=== PATIENT | male | born 1995 | race Caucasian/White ===

== ENCOUNTER 2017-04-14 14:30 | Emergency (ER) | payer SELFPAY ==
[~2017-04-14] VITALS: Ht 190.5 cm; Wt 116.0 kg
[2017-04-14 14:33] VITALS: BP 155/76; PULSE 68; RESP 16; TEMP 97.8; O2SAT 100
[2017-04-14 14:52] LABS: BLOOD, URINE TRACE (NEG); GLUCOSE,URINE NEG (NEG); KETONE, URINE TRACE mg/dL (NEG); NITRITE,URINE NEG (NEG); PH, URINE 6.5 (5.0-8.5)
[2017-04-14 14:56] LABS: METHOD OF COLLECTION CLEAN CATCH
[2017-04-14 14:57] LABS: COMMENT (UR) CULT NOT INDICATED; COMMENT2 (UR) MUCOUS PRESENT; CULTURE IF INDICATED CULT NOT INDICATED; RBC, URINE 0-3 /hpf (0-3); URINE COLOR DARK-YELLOW (YELLW/STRAW)
--- NOTE | 2017-04-14 15:02 | PD ---
HPI Chief Complaint: Abdominal Pain Time Seen by Provider: 14:50 Travel History International Travel<30 days: No Contact w/Intl Traveler<30days: No Traveled to known affect area: No History of Present Illness HPI 21yo M with no significant PMH presents to the ED with c/o nausea for 3 days. Had last episode of bleeding this morning. Pt states he had some abdominal discomfort but currently no pain or discomfort. Pt is constipated and has had very small bowel movement today. Denies any fever, chest pain, sob, testicular pain, penile discharge, diarrhea, or new food. PFSH Past Medical History Anxiety: Yes Tetanus Vaccination: > 5 Years Influenza Vaccination: No Past Surgical History Surgical History: No Previous Surgery Social History Alcohol Use: Yes (occas. beer) Tobacco Use: Yes (1 ppd) Substance Use: No Allergies-Medications (Allergen,Severity, Reaction): Coded Allergies: No Known Allergies (Unverified , 04/14/17) Reported Meds & Prescriptions Reported Meds & Active Scripts Active No Active Prescriptions or Reported Medications Review of Systems Except as stated in HPI: all other systems reviewed are Neg Physical Exam Narrative GENERAL: 21yo M not in distress. SKIN: Focused skin assessment warm/diaphoretic. HEAD: Atraumatic. Normocephalic. EYES: Pupils equal and round. No scleral icterus. No injection or drainage. ENT: No nasal bleeding or discharge. Mucous membranes pink and moist. NECK: Trachea midline. No JVD. CARDIOVASCULAR: Regular rate and rhythm. No murmur appreciated. RESPIRATORY: No accessory muscle use. Clear to auscultation. Breath sounds equal bilaterally. GASTROINTESTINAL: Abdomen soft, non-tender, nondistended. No rebound tenderness or guarding. MUSCULOSKELETAL: No obvious deformities. No clubbing. No cyanosis. No edema. NEUROLOGICAL: Awake and alert. No obvious cranial nerve deficits. Motor grossly within normal limits. Normal speech. PSYCHIATRIC: Appropriate mood and affect; insight and judgment normal. Data Data Last Documented VS Vital Signs Date Time Temp Pulse Resp B/P Pulse Ox O2 Delivery O2 Flow Rate FiO2 04/14/17 16:01 16 04/14/17 14:33 97.8 68 155/76 100 Orders Urinalysis - C+S If Indicated (04/14/17 14:36) Complete Blood Count With Diff (04/14/17 14:57) Comprehensive Metabolic Panel (04/14/17 14:57) Lipase (04/14/17 14:57) Abdomen, Flat & Upright (04/14/17 ) Ondansetron Inj (Zofran Inj) (04/14/17 15:45) Labs Laboratory Tests Test 04/14/17 04/14/17 14:45 15:35 Urine Collection Type CLEAN CATCH Urine Color DARK-YELLOW Urine Turbidity CLEAR Urine pH 6.5 Urine Specific [place] 1.026 Urine Protein TRACE mg/dL Urine Glucose (UA) NEG mg/dL Urine Ketones TRACE mg/dL Urine Occult Blood TRACE Urine Nitrite NEG Urine Bilirubin NEG Urine Leukocyte Esterase NEG Urine RBC 0-3 /hpf Urine Amorphous Sediment MOD Microscopic Urinalysis Comment CULT NOT INDICATED White Blood Count 12.4 TH/MM3 Red Blood Count 5.23 MIL/MM3 Hemoglobin 16.1 GM/DL Hematocrit 48.7 % Mean Corpuscular Volume 93.0 FL Mean Corpuscular Hemoglobin 30.9 PG Mean Corpuscular Hemoglobin 33.2 % Concent Red Cell Distribution Width 13.6 % Platelet Count 253 TH/MM3 Mean Platelet Volume 8.8 FL Neutrophils (%) (Auto) 82.1 % Lymphocytes (%) (Auto) 10.3 % Monocytes (%) (Auto) 5.8 % Eosinophils (%) (Auto) 0.2 % Basophils (%) (Auto) 1.6 % Neutrophils # (Auto) 10.2 TH/MM3 Lymphocytes # (Auto) 1.3 TH/MM3 Monocytes # (Auto) 0.7 TH/MM3 Eosinophils # (Auto) 0.0 TH/MM3 Basophils # (Auto) 0.2 TH/MM3 CBC Comment DIFF FINAL Differential Comment Sodium Level 141 MEQ/L Potassium Level 3.7 MEQ/L Chloride Level 107 MEQ/L Carbon Dioxide Level 24.9 MEQ/L Anion Gap 9 MEQ/L Blood Urea Nitrogen 8 MG/DL Creatinine 0.85 MG/DL Estimat Glomerular Filtration 113 ML/MIN Rate Random Glucose 103 MG/DL Calcium Level 9.2 MG/DL Total Bilirubin 0.9 MG/DL Aspartate Amino Transf 19 U/L (AST/SGOT) Alanine Aminotransferase 30 U/L (ALT/SGPT) Alkaline Phosphatase 89 U/L Total Protein 7.8 GM/DL Albumin 4.2 GM/DL Lipase 85 U/L [facility] Medical Decision Making Medical Screen Exam Complete: Yes Emergency Medical Condition: Yes Differential Diagnosis Acute pancreatitis vs. constipation vs. gastritis Narrative Course 21yo M with nausea and vomiting. Labs reviewed, mild leukocytosis at 12.4. CMP and lipase unremarkable. UA showed trace ketones, blood. No leukocyte or nitrite. Pt given zofran 4mg IV and no longer nauseous. VS stable. Mildly elevated blood pressure but pt is anxious about being in the ED. Instructed pt to follow up with PMD regarding this. Xray abdomen showed nonspecific abdomen. No free air. Pt reevaluated at bedside and still have no abdominal pain. Abdomen soft, NT/ND. Return precautions given. Diagnosis Primary Impression: Vomiting Qualified Code: R11.2 - Non-intractable vomiting with nausea, unspecified vomiting type Patient Instructions: General Instructions Departure Forms: Tests/Procedures Additional Instructions: Please follow up with your PMD i n 3-7 days. Return to the ED if symptoms worsen. Med/Other Pt SpecificInfo: Prescription(s) given Scripts Ondansetron Odt (Zofran Odt)4 Mg Tab4 Mg SL Q12HR PRN (Nausea/Vomiting) #6 TAB Ref 0 Prov:Nelda Azevedo DO 04/14/17 Disposition: 01 DISCHARGE HOME Condition: Stable Nelda Azevedo DO April 14, 2017 15:02
--- NOTE | 2017-04-14 15:24 | RADHPO ---
EXAM DATE/TIME: 04/14/2017 15:00 [facility] COMPARISON: No previous studies available for comparison. INDICATIONS : Abdomen pain, vomiting MEDICAL HISTORY : None. SURGICAL HISTORY : None. ENCOUNTER: Initial ACUITY: 2 days PAIN SCORE: 7/10 LOCATION: Bilateral abdomen FINDINGS: Supine and upright views of the abdomen were performed. The abdominal bowel gas pattern is normal. No air fluid levels are seen. No abnormal masses, calcifications, or organomegaly is seen. The visu alized lower lungs are clear. No evidence of free intraperitoneal gas. The osseous structures are u nremarkable. CONCLUSION: Nonspecific abdomen. There is no free air. Aakash Foster MD FACR on April 14, 2017 at 15:21 Board Certified Radiologist. This report was verified electronically.
[2017-04-14 15:40] VITALS: BP 156/66; PULSE 68; RESP 16; O2SAT 98
[2017-04-14] MEDS ORDERED: ONDANSETRON HCL 4 MG/2 ML VIAL IV PUSH ONE (15:45)
[2017-04-14 15:48] LABS: AUTOMATED NEUTROPHIL # 10.2 TH/MM3 (1.8-7.7); BASOPHIL # 0.2 TH/MM3 (0-0.2); BASOPHIL % 1.6 % (0.0-2.0); EOSINOPHIL % 0.2 % (0.0-4.0); HEMATOCRIT 48.7 % (39.0-51.0); LYMPH % 10.3 % (9.0-44.0); LYMPHOCYTE # 1.3 TH/MM3 (1.0-4.8); MEAN CORPUSCULAR HEMOGLOBIN 30.9 PG (27.0-34.0); MEAN CORPUSCULAR HGB CONC 33.2 % (32.0-36.0); MONO % 5.8 % (0.0-8.0); NEUT % 82.1 % (16.0-70.0); PLATELET COUNT 253 TH/MM3 (150-450); RED BLOOD COUNT 5.23 MIL/MM3 (4.50-5.90); RED CELL DISTRIBUTION WIDTH 13.6 % (11.6-17.2); WHITE BLOOD COUNT 12.4 TH/MM3 (4.0-11.0)
[2017-04-14 15:49] LABS: HEMO FLAGS DIFF FINAL
[2017-04-14 15:52] LABS: CHLORIDE 107 MEQ/L (98-107); POTASSIUM 3.7 MEQ/L (3.5-5.1); SODIUM (NA) 141 MEQ/L (136-145)
[2017-04-14 15:56] LABS: ANION GAP 9 MEQ/L (5-15); BICARBONATE 24.9 MEQ/L (21.0-32.0); BLOOD UREA NITROGEN 8 MG/DL (7-18)
[2017-04-14 15:59] LABS: ALT (GPT) 30 U/L (12-78); AST (GOT) 19 U/L (15-37); GLOMERULAR FILTRATION RATE 113 ML/MIN (>89)
[2017-04-14 16:00] LABS: TOTAL BILIRUBIN ADULT 0.9 MG/DL (0.2-1.0)
[2017-04-14 16:02] LABS: ALKALINE PHOSPHATASE 89 U/L (45-117)
[2017-04-14] MEDS ORDERED: ZOFR4TAB3 SL (16:26)
[2017-04-14 16:42] VITALS: BP 142/64
== END 2017-04-14 16:50 | disposition home or self-care (01) ==
LOC: PHED 14:30
DX: R11.2 Nausea with vomiting, unspecified (principal); D72.829 Elevated white blood cell count, unspecified; K59.00 Constipation, unspecified; F17.200 Nicotine dependence, unspecified, uncomplicated; Z86.59 Personal history of other mental and behavioral disorders
CPT/HCPCS: 74020; 80053; 81001; 83690; 85025; 96374; 99283; J2405